=== PATIENT | male | born 1955 ===

== ENCOUNTER → 2018-11-15 | Outpatient (CLI) | payer OTHER ==
--- NOTE | 2018-11-15 18:04 | HKNOTE ---
DATE OF SERVICE: 11/15/2018 CHIEF COMPLAINT: Right arm pain. HISTORY OF PRESENT ILLNESS: Mr. Rahman is a 63-year-old male who is complaining of right arm pain. He injured his arm approximately 1 year ago. He states that he has noticed a bulging over the right arm. He denies any numbness or tingling in his right upper extremity. He is able to perform his act ivities of daily living. He has not had previous treatment. PAST MEDICAL HISTORY: None. MEDICATIONS: None. PAST SURGICAL HISTORY: Appendectomy, hernia repair. SOCIAL HISTORY: No tobacco or alcohol use. ALLERGIES: NO ALLERGIES. PHYSICAL EXAMINATION: Right arm: There is a akua deformity of the right arm. He has 0 to 140 deg raphael of elbow flexion, 80 degrees of supination, 80 degrees of pronation. The biceps tendon is palpa ble. IMPRESSION: A 63-year-old male with right proximal biceps tendon tear. PLAN: We will request authorization for right shoulder MRI to evaluate for proximal biceps tendon te ar. He will follow up in 6 weeks to go over the results. Dictated By: DAYANA LOVETT/KAVEH Conf#: [id number] DID#: [id number]
== END | disposition home or self-care (01) ==
LOC: HKI 16:06
PROVIDERS: ATTEND Orthopaedic Surgery Adult Reconstructive Orthopaedic Surgery
DX: S46.211A Strain of muscle, fascia and tendon of other parts of biceps, right arm, initial encounter (principal); X58.XXXA Exposure to other specified factors, initial encounter; Y92.89 Other specified places as the place of occurrence of the external cause
CPT/HCPCS: G0463

== ENCOUNTER → 2019-01-10 | Outpatient (CLI) | payer OTHER ==
--- NOTE | 2019-01-10 16:46 | HKNOTE ---
DATE OF SERVICE: 01/10/2019 HISTORY OF PRESENT ILLNESS: Mr. Rahman is here to go over his MRI results. He is complaining of dif ficulty performing his activities of daily living. He has pain in his right arm. PHYSICAL EXAMINATION: Right elbow: There is a Du deformity. A 0 to 140 degrees flexion of the elbow, 80 degrees of pr onation, 80 degrees of supination. Distal biceps tendon is intact. A 5/5 function of median, ulnar, radial and musculoskeletal nerve. DIAGNOSTIC DATA: MRI of the right humerus: There is a tear of the long head of the biceps tendon. The distal attachment of the biceps tendon was intact. DIAGNOSIS: A 63-year-old male with proximal long head biceps tendon tear. PLAN: We will request authorization for outpatient physical therapy. He was instructed on home exer cises. He will follow up in 3 months. Dictated By: DAYANA LOVETT/KAVEH Conf#: [id number] DID#: [id number]
== END | disposition home or self-care (01) ==
LOC: HKI 14:45
PROVIDERS: ATTEND Orthopaedic Surgery Adult Reconstructive Orthopaedic Surgery
DX: M66.821 Spontaneous rupture of other tendons, right upper arm (principal); M25.511 Pain in right shoulder
CPT/HCPCS: G0463